=== PATIENT | male | born 1985 | race Caucasian/White ===

== ENCOUNTER 2016-10-06 05:14 | Emergency (ER) | payer OTHER ==
[~2016-10-06] VITALS: Ht 180.3 cm; Wt 99.8 kg
[2016-10-06] MEDS ORDERED: ONDANSETRON HCL/PF 4 MG/2 ML VIAL ONE ×2 (05:17→06:03)
[2016-10-06] MEDS ORDERED: ONDANSETRON HCL/PF 4 MG/2 ML VIAL IM/IV ONE (05:30)
[2016-10-06] MEDS ORDERED: HYDROMORPHONE 1 MG/1 ML DISP.SYRIN IV ONE (06:00)
[2016-10-06] MEDS ORDERED: METOCLOPRAMIDE HCL 10 MG/2 ML VIAL ONE (06:00)
[2016-10-06] MEDS ORDERED: METOCLOPRAMIDE HCL 10 MG/2 ML VIAL IV ONE (06:30)
[2016-10-06] MEDS ORDERED: ONDANSETRON HCL/PF 4 MG/2 ML VIAL IV ONE (07:00)
[2016-10-06 12:03] VITALS: BP 139/89
== END 2016-10-06 12:04 | disposition home or self-care (01) ==
LOC: ER 05:16
DX: T40.1X1A Poisoning by heroin, accidental (unintentional), initial encounter (principal); R79.89 Other specified abnormal findings of blood chemistry; Y92.89 Other specified places as the place of occurrence of the external cause
CPT/HCPCS: 82962 ×2; 96372; 96374; 99284; A4606 ×2; J2405; J2765; Z7610 ×2